=== PATIENT | female | born 1965 | race Caucasian/White ===

== ENCOUNTER 2016-08-06 21:48 | Observation (INO) | payer BC ==
[~2016-08-06] VITALS: Ht 152.4 cm; Wt 78.5 kg
[~2016-08-06 21:48] MED LIST: CIPR500T4 PO; GLYB5TAB3 PO; IBUP-1542 PO; INSU100I15 SC; LISI-313 PO; PRAV10TA43 PO
[2016-08-06] MEDS ORDERED: NITROGLYCERIN 2% 1 GM OINT PKT TD STA (23:28)
[2016-08-06] MEDS ORDERED: ASPIRIN 325 MG TAB PO STA (23:28)
[2016-08-07] VITALS (10 sets, daily range): BP systolic 91–111; BP diastolic 53–61; PULSE 63–72; RESP 18–20; Ht 152.4 cm; Wt 78.5 kg
[2016-08-07 00:05] LABS: CHLORIDE 102 mmol/L (97-110); POTASSIUM 4.2 mmol/L (3.5-5.1); SODIUM 142 mmol/L (135-144)
[2016-08-07 00:08] LABS: ANION GAP 16 (8-16); BLOOD UREA NITROGEN 20 mg/dl (7-20); CARBON DIOXIDE 28 mmol/L (21-31); CREATININE 0.66 mg/dl (0.44-1.00)
[2016-08-07 00:09] LABS: CALCIUM 9.4 mg/dl (8.4-10.2); GLUCOSE 361 mg/dl (70-220)
[2016-08-07 00:12] LABS: INR 0.96; PARTIAL THROMBOPLASTIN TIME 31.1 Sec (25.0-35.0); PROTIME 12.8 Sec (12.2-14.2)
[2016-08-07 00:13] LABS: BASOPHILS % 0.4 % (0.0-2.0); EOSINOPHILS % 0.4 % (0.0-7.0); HEMATOCRIT 34.1 % (37.0-47.0); HEMOGLOBIN 11.4 g/dl (12.0-16.0); LYMPHOCYTES # 1.8 10^3/ul (0.8-2.9); LYMPHOCYTES % 19.8 % (15.0-51.0); MEAN CORPUSCULAR HGB CONC 33.4 g/dl (32.0-37.0); MEAN PLATELET VOLUME 10.1 fl (7.4-10.4); MONOCYTE # 0.5 10^3/ul (0.3-0.9); MONOCYTES % 5.4 % (0.0-11.0); NEUTROPHIL # 6.9 10^3/ul (1.6-7.5); PLATELET COUNT 373 10^3/UL (140-440); RED BLOOD COUNT 4.74 10^6/ul (4.20-5.40); RED CELL DISTRIBUTION WIDTH 17.4 % (11.5-14.5); UNCORRECTED WBC 9.3 10^3/ul (4.8-10.8); WHITE BLOOD COUNT 9.3 10^3/ul (4.8-10.8)
[2016-08-07 00:14] LABS: CONDITION 1; LH ANALYZER COMMENTS 1
[2016-08-07 00:15] LABS: D-DIMER 3794.21 ng/ml (<460)
[2016-08-07] MEDS ORDERED: IOHEXOL 300MG/ML 150 ML BTL ONE (00:22)
[2016-08-07] MEDS ORDERED: SOD CHLORIDE 0.9% 100 ML ONE (00:22)
[2016-08-07 00:31] LABS: TROPONIN-I < 0.012 ng/ml (0.00-0.12)
--- NOTE | 2016-08-07 01:46 | RADRPT ---
PROCEDURE: CT Chest with contrast. CLINICAL INDICATION: Chest pain. TECHNIQUE: CT scan of the chest was performed on a multidetector scanner. The patient was scanned following the uncomplicated intravenous administration of 100 cc of Omnipaque-300 contrast. 3D, co kwabena and sagittal reformatted images were obtained from the axial source images. Images were review ed on a high-resolution PACS workstation. The total exam CTDlvol = 53 mGy and DLP = 606 mGy-cm. COMPARISON: CT abdomen 10/28/2015 FINDINGS: No filling defects are identified within the pulmonary arteries to suggest pulmonary artery thrombos is. Thoracic aorta is normal caliber without aneurysm or dissection. There are minimal atheroscler otic vascular calcifications. There is no mediastinal or hilar lymphadenopathy or mass. Heart is m ildly enlarged. No pericardial fluid or thickening. There is hypoventilation with mild mild dependent atelectasis. No focal infiltrate. There is no pl eural effusion. There is no pneumothorax. There are no fractures. Chest wall is unremarkable. Imaging obtained through the upper abdomen demonstrates an enlarged 17.8 cm liver.. IMPRESSION: 1. No evidence for pulmonary embolus. 2. No aortic aneurysm or dissection. 3. Minimal atherosclerotic vascular of occasions. 4. Hypoventilation with minimal bibasilar atelectasis. 5. Hepatomegaly. RPTAT: HMVK .Venancio Martin MD, MD Date Time Electronically viewed and signed by .Venancio Martin MD, on 08/07/2016 01:45 .K/
[2016-08-07] MEDS ORDERED: SOD CHLORIDE 0.9% 1,000 ML IV SCH (02:16)
--- NOTE | 2016-08-07 02:21 | ERA ---
ER Documentation Chief Complaint Date/Time DATE: 08/07/16 TIME: 02:18 Chief Complaint weak since earlier today with pressure on body HPI This is a 51-year-old patient with hypertension and diabetes who complained prior to arrival having substernal chest pressure with shortness of breath and radiation down the left arm. She experienced pain for a few minutes and subsequently was syncopal for an unknown duration of time. When she woke up she still had the chest pressure but it gradually went away. Currently she is pain-free. Patient denies any prior history of cardiac disease or chest pain workups in the hospital. She had some palpitations but no diaphoresis and did have an overall sense of general weakness. ROS All systems reviewed and are negative except as per history of present illness. Medications Home Meds Active Scripts Ibuprofen* (Ibuprofen*) 600 Mg Tablet, 600 MG PO Q6H Y for PAIN, #20 TAB Prov:VENANCIO PEDROZA MD 10/29/15 Ciprofloxacin Hcl* (Ciprofloxacin Hcl*) 500 Mg Tablet, 500 MG PO BID for 10 Days , TAB Prov:VENANCIO PEDROZA MD 10/29/15 Reported Medications Insulin Glargine,Hum.rec.anlog (Lantus Solostar) 100 Units/Ml Pen, 25 UNIT SC QHS, SYR 10/29/15 Glyburide* (Glyburide*) 5 Mg Tablet, 5 MG PO BID, TAB 10/29/15 Lisinopril* (Lisinopril*) 5 Mg Tablet, 5 MG PO DAILY, TAB 10/29/15 Pravastatin Sodium* (Pravastatin Sodium*) 10 Mg Tablet, 10 MG PO HS, TAB 10/29/15 Allergies Allergies: Coded Allergies: No Known Allergy (Unverified , 10/29/15) PMhx/Soc History of Surgery: Yes ( x 3) Anesthesia Reaction: No Hx Neurological Disorder: No Hx Respiratory Disorders: No Hx Cardiac Disorders: Yes (HTN, hyperlipidemia ) Hx Psychiatric Problems: No Hx Miscellaneous Medical Probl: Yes (diabetes type 1 ) Hx Alcohol Use: No Hx Substance Use: No Hx Tobacco Use: No Smoking Status: Never smoker FmHx Family History: No coronary disease Physical Exam Vitals Vital Signs Date Time Temp Pulse Resp B/P Pulse Ox O2 Delivery O2 Flow Rate FiO2 08/07/16 01:00 75 17 112/54 100 Nasal Cannula 2.0 08/06/16 23:57 Nasal Cannula 2 08/06/16 21:55 97.8 81 18 171/77 99 Physical Exam Const: Well-developed, well-nourished Head: Atraumatic, normocephalic Eyes: Normal Conjunctiva, PERRLA, EOMI, normal sclera, no nystagmus ENT: Normal External Ears, Nose and Mouth, moist mucus membranes. Neck: Full range of motion. No meningismus, no lymphadenopathy. Resp: Clear to auscultation bilaterally, no wheezing, rhonchi, rales Cardio: Regular rate and rhythm, no murmurs, S1 S2 present Abd: Soft, non tender x 4, non distended. Normal bowel sounds, no guarding or rebound, no pulsitile abdominal masses or bruits Skin: No petechiae or rashes, no ecchymosis , no maculopapular rash Back: No midline or flank tenderness Ext: No cyanosis, or edema, FROM x 4, normal inspection, neurovascularly intact x 4 Neur: Awake and alert, STR 5/5 x 4, sensation intact x 4, no focal findings, cerebellum intact Psych: Normal Mood and Affect Result Diagram: 08/06/16 2330 08/06/16 2330 Results 24 hrs Laboratory Tests Test 08/06/16 23:30 Activated Partial Thromboplast Time 31.1Sec Anion Gap 16 Basophils # 0.010^3/ul Basophils % 0.4% Blood Morphology Comment Blood Urea Nitrogen 20mg/dl Calcium Level 9.4mg/dl Carbon Dioxide Level 28mmol/L Chloride Level 102mmol/L Creatinine 0.66mg/dl D-Dimer 3794.21ng/ml D-Dimer Comment Eosinophils # 0.010^3/ul Eosinophils % 0.4% Glucose Level 361mg/dl Hematocrit 34.1% Hemoglobin 11.4g/dl INR International Normalized Ratio 0.96 Lymphocytes # 1.810^3/ul Lymphocytes % 19.8% Mean Corpuscular Hemoglobin 24.0pg Mean Corpuscular Hemoglobin Concent 33.4g/dl Mean Corpuscular Volume 72.0fl Mean Platelet Volume 10.1fl Monocytes # 0.510^3/ul Monocytes % 5.4% Neutrophils # 6.910^3/ul Neutrophils % 74.0% Nucleated Red Blood Cells # 0.010^3/ul Nucleated Red Blood Cells % 0.0/100WBC Platelet Count 19816^3/UL Potassium Level 4.2mmol/L Prothrombin Time 12.8Sec Prothrombin Time Ratio 1.0 Red Blood Count 4.7410^6/ul Red Cell Distribution Width 17.4% Sodium Level 142mmol/L Troponin I < 0.012ng/ml White Blood Count 9.310^3/ul Current Medications Medications (Trade) Dose Ordered Sig/Will Route PRN Reason Start Time Stop Time Status Last Admin Dose Admin Aspirin (Aspirin) 325 mg ONCE STAT PO 08/06/16 23:28 08/06/16 23:30 DC 08/06/16 23:39 Nitroglycerin 1 inch 1 inch ONCE STAT TD 08/06/16 23:28 08/06/16 23:30 DC 08/06/16 23:39 Sodium Chloride (NS) 100 ml @ ud STK-MED ONCE .ROUTE 08/07/16 00:22 08/07/16 00:23 DC 08/07/16 00:49 Iohexol (Omnipaque 300mg/ ml) 150 ml STK-MED ONCE .ROUTE 08/07/16 00:22 08/07/16 00:23 DC 08/07/16 00:49 Procedures/MDM EKG: Rate/Rhythm: Normal Sinus Rhythm,NL intervals QRS, ST, QT: NORMAL TX, QRS, QT] Impression: NORMAL EKG PROCEDURE: CT Chest with contrast. CLINICAL INDICATION: Chest pain. TECHNIQUE: CT scan of the chest was performed on a multidetector scanner. The patient was scanned following the uncomplicated intravenous administration of 100 cc of Omnipaque-300 contrast. 3D, coronal and sagittal reformatted images were obtained from the axial source images. Images were reviewed on a high-resolution PACS workstation. The total exam CTDlvol = 53 mGy and DLP = 606 mGy-cm. COMPARISON: CT abdomen 10/28/2015 FINDINGS: No filling defects are identified within the pulmonary arteries to suggest pulmonary artery thrombosis. Thoracic aorta is normal caliber without aneurysm or dissection. There are minimal atherosclerotic vascular calcifications. There is no mediastinal or hilar lymphadenopathy or mass. Heart is mildly enlarged. No pericardial fluid or thickening. There is hypoventilation with mild mild dependent atelectasis. No focal infiltrate. There is no pleural effusion. There is no pneumothorax. There are no fractures. Chest wall is unremarkable. Imaging obtained through the upper abdomen demonstrates an enlarged 17.8 cm liver.. IMPRESSION: 1. No evidence for pulmonary embolus. 2. No aortic aneurysm or dissection. 3. Minimal atherosclerotic vascular of occasions. 4. Hypoventilation with minimal bibasilar atelectasis. 5. Hepatomegaly. RPTAT: HMVK .Venancio Martin MD, MD Date Time Electronically viewed and signed by .Venancio Martin MD, on 08/07/2016 01:45 .K/ CC: DICK CONNOLLY DO No evidence of PE. I will admit the patient to the hospital for cardiac workup. Patient had elevated d-dimer but again no evidence of PE at this time. Patient's symptoms are concerning for cardiac cause will require inpatient workup and continuous monitoring. Further w/u for ischemia, arrhythmia, PE or dissection will be deferred to the inpatient team. Accepting Care Team: Current data and ongoing care discussed. Time: Time of admission Primary Provider: ifeoma Consulting: [INES] Outstanding Data: none Departure Diagnosis: Primary Impression: Chest pain Qualified Code: R07.9 - Chest pain, unspecified type Condition: Stable DICK CONNOLLY DO Aug 07, 2016 02:21
[2016-08-07] MEDS ORDERED: LORAZEPAM 2 MG INJ IV PRN (02:30)
[2016-08-07] MEDS ORDERED: ACETAMINOPHEN 325 MG TAB PO PRN ×2 (02:30)
[2016-08-07] MEDS ORDERED: ONDANSETRON 4 MG INJ IV PRN ×2 (02:30)
[2016-08-07] MEDS ORDERED: NITROGLYCERIN (SL) 0.4 MG TAB SL PRN (02:30)
[2016-08-07] MEDS ORDERED: DOCUSATE SODIUM 100 MG CAP PO PRN (02:30)
[2016-08-07] MEDS ORDERED: NACL 0.9% 3 ML SYG IV SCH (02:30)
[2016-08-07] MEDS ORDERED: hydrALAzine 20 MG INJ IV PRN (02:30)
--- NOTE | 2016-08-07 02:38 | HP ---
Date/Time of Note Date/Time of Note DATE: 08/07/16 TIME: 02:30 Assessment/Plan VTE Prophylaxis VTE Prophylaxis Intervention: heparin Lines/Catheters IV Catheter Type (from Rust): Peripheral IV Assessment/Plan Assessment/Plan 51 yo female with a past medical history of essential hypertension, type II DM, who complains of acute chest pain. 1. Chest pain - ACS vs atypical - will admit the patient to telemetry, consult cardiology for possible stress test, cycle cardiac markers, check TSH/Mag level , morphine, NTG, oxygen, aspirin, 2D ECHO, npo for stress test in am, statin - lipid panel 2. Syncope - cardiac vs vasovagal - will also obtain a carotid duplex, fall precautions, orthostatic vitals 3. Type II DM - uncontrolled - will check hgba1c, ISS, lantus 4. Essential hypertension - continue with lisinopril, once tested, possible addition of coreg, hydralazine prn for SBP > 160 5. Anemia - microcytic - check iron profile, occult blood stool 6. GI ppx - pepcid po 7. DVT ppx - heparin answered all of her questions. as per clinical course. this history and physical took greater then 45 minutes to complete HPI/ROS Admit Date/Time Admit Date/Time 08/07/2016, 2:30 am Hx of Present Illness 51 yo female with a past medical history of essential hypertension, type II DM, who complains of acute chest pain. She states that the chest pain is substernal , radiating to her neck, back and left arm, associated with syncopal episode. This has never happened before. She has never had a stress test or an echocardiogram. Her pain is 7/10 in intensity, with no alleviating factors. Also associated is dizziness and headaches. She denies any nausea/vomiting/ diarrhea, shortness of breath, lightheadedness, fevers/chills, urinary/bowel irregularities or other constitutional symptoms. ED course: zofran, nitropaste ROS 14 point review of systems completed, please refer to HPI for any positive findings PMH/Family/Social Past Medical History Medical History: diabetes, hypertension Past Surgical History x 3 Family History Significant Family History: no pertinent family hx, heart disease (none), diabetes (none), hypertension (none) Social History Alcohol Use: none Smoking Status: Never smoker Drug Use: none Exam/Review of Systems Vital Signs Vitals Vital Signs Date Time Temp Pulse Resp B/P Pulse Ox O2 Delivery O2 Flow Rate FiO2 08/07/16 01:00 75 17 112/54 100 Nasal Cannula 2.0 08/06/16 21:55 97.8 Exam Exam Gen Omi: mild distress 2/2 to chest discomfort, AAOx4 HEENT: NC/AT, PERRLA, EOMI, no pharyngeal erythema, no tonsillar exudates, no lymphadenopathy, no JVD, no carotid bruits NECK: supple, no thyromegaly THORAX: symmetrical, no obvious deformities CV: S1S2, RRR, no M/G/R Lungs: CTAB no W/C/R/R Abd: soft, NT/ND, +BS, no rebound, no guarding, neg HSM EXT: trace lower extremity bilateral edema, no ecchymosis, no clubbing, FROM Neuro: CN II-XII grossly intact, no focal deficits Psych: good mentation, alert and oriented, good mood and affect Skin: C/D/I Labs Result Diagram: 08/06/16 2330 08/06/16 2330 Medications Medications Current Medications Sodium Chloride (NS) 1,000 ml @ 80 mls/hr [id number] IV ; Start 08/07/16 at 02:16 ; Stop 08/07/16 at 14:45 Procedures Procedures CTA chest IMPRESSION: 1. No evidence for pulmonary embolus. 2. No aortic aneurysm or dissection. 3. Minimal atherosclerotic vascular of occasions. 4. Hypoventilation with minimal bibasilar atelectasis. 5. Hepatomegaly. DOMINIQUE COLLINS MD Aug 07, 2016 02:38
[2016-08-07 03:43] LABS: CREATINE KINASE 42 IU/L (23-200); IRON 24 ug/dl (35-150)
[2016-08-07 03:44] LABS: CHOL/HDL RATIO 3.1 RATIO; MAGNESIUM 1.8 mg/dl (1.7-2.5)
[2016-08-07 03:53] LABS: CK-MB 0.32 ng/ml (0.0-2.4); TOTAL IRON BINDING CAPACITY 387 ug/dl (241-421)
[2016-08-07 03:56] LABS: TROPONIN-I < 0.012 ng/ml (0.00-0.12)
[2016-08-07 04:14] LABS: THYROID STIMULATING HORMONE 1.5 MIU/L (0.465-4.680)
[2016-08-07] MEDS: SOD CHLORIDE 0.9% 1,000 ML IV SCH ×2 (06:35→14:49)
[2016-08-07] MEDS: FAMOTIDINE 20 MG TAB PO SCH ×2 (08:20→20:44)
[2016-08-07] MEDS: LISINOPRIL 5 MG TAB PO SCH (08:20)
[2016-08-07] MEDS: ASPIRIN 81 MG TAB PO SCH (08:20)
[2016-08-07] MEDS: INSULIN ASPART [NOVOLOG] 3 ML PEN SC SCH ×5 (08:26→21:02)
[2016-08-07] MEDS: HEPARIN 5,000 UNIT/0.5 ML SYG SC SCH ×2 (08:27→20:56)
[2016-08-07] MEDS ORDERED: GLUCOSE GEL 15 GRAM TUBE PO PRN ×2 (09:00)
[2016-08-07] MEDS ORDERED: GLUCAGON 1 MG INJ IM PRN (09:00)
[2016-08-07] MEDS ORDERED: GLUCOSE GEL 15 GRAM TUBE BUCCAL PRN (09:00)
[2016-08-07] MEDS ORDERED: DEXTROSE 50% 50 ML SYRINGE IV PRN ×2 (09:00)
--- NOTE | 2016-08-07 10:30 | RADRPT ---
PROCEDURE: US Carotids. CLINICAL INDICATION: bruit , syncope. TECHNIQUE: Multiple sonographic of the carotid bifurcation region and vertebral arteries were obta ined utilizing flood scale, duplex and color-flow imaging. The images were reviewed on a PACS worksta tion. COMPARISON: No prior studies are available for comparison. FINDINGS: Evaluation of the right carotid bifurcation region reveals no significant calcific atherosclerotic d isease. Evaluation of the left carotid bifurcation region reveals no significant calcific atherosclerotic di sease. There is antegrade flow within the vertebral arteries bilaterally. RIGHT CAROTID MEASUREMENTS: Common Carotid Llfzrq33.2 (cm/sec) Internal Carotid Artery - shgrumpt96.6 (cm/sec) Internal Carotid Artery - mid84.9 (cm/sec) Internal Carotid Artery - .4 (cm/sec) Internal Carotid/Common Carotid1.45 LEFT CAROTID MEASUREMENTS: Common Carotid Hrlyws12.7 (cm/sec) Internal Carotid Artery - txgvobnk32.3 (cm/sec) Internal Carotid Artery - mid57.3 (cm/sec) Internal Carotid Artery - gawwko38.9 (cm/sec) Internal Carotid/Common Carotid0.86 RPTAT: AA IMPRESSION: No evidence for hemodynamically significant stenosis in the bilateral internal carotid arteries - va lidated velocity measurements with angiographic measurements, velocity criteria are extrapolated fro m diameter data as defined by the Society of Radiologists in Ultrasound Consensus Conference Radiolo gy 2003; 229;340-346. This study does indirectly reference the measurement of the distal ICA diamet er as the denominator for stenosis measurement. Normal antegrade flow in the vertebral arteries bilaterally. .Lonnie Wick MD, Date Time Electronically viewed and signed by .Lonnie Wick MD, MD on 08/07/2016 10:30 .S/
[2016-08-07 11:26] LABS: CREATINE KINASE 29 IU/L (23-200)
[2016-08-07 11:36] LABS: CK-MB 0.24 ng/ml (0.0-2.4)
[2016-08-07 11:43] LABS: TROPONIN-I < 0.012 ng/ml (0.00-0.12)
--- NOTE | 2016-08-07 15:58 | CONS ---
DATE OF ADMISSION: 08/07/2016 DATE OF CONSULTATION: 08/07/2016 TYPE OF CONSULTATION: Cardiology REFERRING PHYSICIAN: Dr. Collins REASON FOR CONSULTATION: Chest pain. CHIEF COMPLAINT: Chest pain. HISTORY OF PRESENT ILLNESS: Thank you for this referral. Discussion with her daughter, and Dr. Inocencia schneider. This is a pleasant 51-year-old female with history of diabetes who presented with complaint o f chest pain. The patient said she had sudden onset of chest pain, was severe, 7/10 in intensity, l eft-sided pain lasted a few seconds only. Had left arm pain as well. came to emergency room. Card iac enzymes have been negative so far. Currently, the patient is chest pain-free. PAST MEDICAL HISTORY: Diabetes, hypertension. ALLERGIES: NO REPORTED DRUG ALLERGIES. SOCIAL HISTORY: Does not smoke or drink. FAMILY HISTORY: No reported coronary artery disease. MEDICATIONS: Per medication reconciliation, personally reviewed. REVIEW OF SYSTEMS: All except for above-mentioned. PHYSICAL EXAMINATION: VITAL SIGNS: Temperature 98.5, heart rate of 68, blood pressure 100/56, respiration rate of 20, sat urating 99%. HEENT: Normocephalic, atraumatic. Pupils equal and round. CARDIOVASCULAR: Regular rate and rhythm. PULMONARY: With no wheezes. GASTROINTESTINAL: Soft, nontender. EXTREMITIES: With no significant lower extremity edema. NEUROLOGIC: Awake, responds appropriately. PSYCHIATRIC: Appears to be calm and pleasant. DIAGNOSTIC DATA: EKG was personally reviewed, showed normal sinus rhythm, no evidence of ischemia. Poor R-wave progression, cannot rule out anterior infarct. LABORATORY: Sodium 142, potassium is 4.2, BUN of 20, creatinine 0.66, glucose of 361. Hemoglobin A 1c of 10.9. Troponin less than 0.12. LDL of 93, HDL 51. CT pulmonary angiogram done shows no evid ence of pulmonary embolus or aortic aneurysm or dissection. Minimal atherosclerosis. ASSESSMENT AND PLAN: 1. Chest pain. Rule acute coronary syndrome. 2. Diabetes. 3. Hypertension. 4. Anemia. RECOMMENDATIONS: Will monitor on telemetry. Cardiac enzymes have been negative. Continue with the aspirin. Lexiscan test will be ordered to be done once the nuclear medicine is available. As of , they have told me that the team is not available. Will schedule for tomorrow, therefore. Dictated By: GURJIT COLON/NTS Conf#: [id number] DID#: [id number] CC: DOMINIQUE COLLINS MD;*EndCC*
--- NOTE | 2016-08-07 16:01 | RADRPT ---
Echocardiogram Report Patient Name: SALMA MEJIA Gender: Female Date: 1965 Study Date: 07-Aug-2016 Airplane Pilot Helper: Lin Gillespie OSBALDO Location: 520 Ref. Physician: DOMINIQUE COLLINS Quality: Adequate Procedures: Transthoracic echocardiogram with complete 2D, M-Mode, and doppler examination. Indications: Chest Pain. 2D/M Mode Doppler Measurement Value Normal Ranges Measurement Value Normal Ranges LVIDd 2D 4.7 3.5 - 5.6 cm AV Peak Niko 1.4 m/sec LVIDs 2D 2.6 2.1 - 4.1 cm AV Peak PG 8.2 mmHg LVPWd 2D 0.9 0.6 - 1.1 cm LVOT Peak Niko 1.1 m/sec IVSd 2D 0.8 0.6 - 1.1 cm LVOT Peak PG 4.5 mmHg AoR Diam 2D 2.3 2.0 - 3.7 cm MV E Peak Niko 0.8 m/sec EDV 2D 104.1 cm3 MV A Peak Niko 0.9 m/sec ESV 2D 17.6 cm3 MV E/A 0.9 LA Dimen 2D 3.7 2.3 - 4.0 cm MV Decel Time 191 msec MV Decel Callahan 4 MV E/A 0.9 TR Peak Niko 1.9 m/sec TR Peak PG 14.7 mmHg RVSP 18.0 mmHg Findings Left Ventricle: Normal left ventricular systolic function. Normal left ventricular cavity size. Normal left ventricular wall thickness. Ejection fraction is visually estimated at 65 %. Tissue Doppler/Mitral Doppler indices are consistent with impaired relaxation (Stage I diastolic dysfunction). Right Ventricle: Normal right ventricular size. Normal right ventricular systolic function. Left Atrium: The left atrium is normal in size. Right Atrium: The right atrium is normal in size. Mitral Valve: Normal appearance and function of the mitral valve with trace physiologic regurgitation. Aortic Valve: Normal appearance of the aortic valve. No significant aortic stenosis or insufficiency. Tricuspid Valve: Normal appearance and function of the tricuspid valve with trace physiologic regurgitation. Estimated peak PA systolic pressure 18 mmHg. Pericardium: Normal pericardium with no significant pericardial effusion. Aorta: Normal aortic root. IVC: Normal size and normal respiratory collapse consistent with normal right atrial pressure. Conclusions 1.Normal left ventricular systolic function. Normal left ventricular cavity size. Normal left ventricular wall thickness. Ejection fraction is visually estimated at 65 %. Tissue Doppler/Mitral Doppler indices are consistent with impaired relaxation (Stage I diastolic dysfunction). 2.Normal appearance and function of the mitral valve with trace physiologic regurgitation. 3.Normal appearance of the aortic valve. No significant aortic stenosis or insufficiency. 4.Normal appearance and function of the tricuspid valve with trace physiologic regurgitation. Estimated peak PA systolic pressure 18 mmHg. 5.Normal size and normal respiratory collapse consistent with normal right atrial pressure. Electronically Signed By: Jose Troncoso 07-Aug-2016 16:01: Patient Name: SALMA MEJIA Study Date: 07-Aug-2016 [id number]
[2016-08-07] MEDS ORDERED: NON-FORMULARY/PATIENT OWN MED (Pravastatin Sodium* 10 MG) PO SCH (21:00)
[2016-08-07] MEDS ORDERED: INSULIN GLARGINE [LANtus] 3 ML PEN SC SCH (21:00)
[2016-08-07] MEDS ORDERED: ATORVASTATIN 10 MG TAB PO SCH (21:00)
[2016-08-08] VITALS (12 sets, daily range): BP systolic 100–125; BP diastolic 56–63; PULSE 70–85; RESP 20
[2016-08-08] MEDS: INSULIN ASPART [NOVOLOG] 3 ML PEN SC SCH ×5 (01:00→17:00)
[2016-08-08] MEDS: morphine 2 MG INJ IV PRN ×2 (04:21→08:59)
[2016-08-08] MEDS: SOD CHLORIDE 0.9% 1,000 ML IV SCH ×2 (05:06→18:26)
[2016-08-08 06:45] LABS: BASOPHILS % 0.3 % (0.0-2.0); EOSINOPHILS # 0.1 10^3/ul (0.0-0.5); EOSINOPHILS % 0.8 % (0.0-7.0); HEMATOCRIT 32.6 % (37.0-47.0); HEMOGLOBIN 10.4 g/dl (12.0-16.0); LYMPHOCYTES # 1.9 10^3/ul (0.8-2.9); LYMPHOCYTES % 26.3 % (15.0-51.0); MEAN CORPUSCULAR HEMOGLOBIN 23.9 pg (29.0-33.0); MEAN CORPUSCULAR HGB CONC 31.8 g/dl (32.0-37.0); MEAN CORPUSCULAR VOLUME 75.1 fl (82.0-101.0); MEAN PLATELET VOLUME 9.4 fl (7.4-10.4); MONOCYTE # 0.5 10^3/ul (0.3-0.9); MONOCYTES % 6.9 % (0.0-11.0); NEUTROPHIL # 4.8 10^3/ul (1.6-7.5); NEUTROPHILS % 65.7 % (39.0-77.0); PLATELET COUNT 336 10^3/UL (140-440); RED BLOOD COUNT 4.35 10^6/ul (4.20-5.40); RED CELL DISTRIBUTION WIDTH 17.1 % (11.5-14.5); UNCORRECTED WBC 7.4 10^3/ul (4.8-10.8); WHITE BLOOD COUNT 7.4 10^3/ul (4.8-10.8)
[2016-08-08 06:56] LABS: POTASSIUM 3.7 mmol/L (3.5-5.1)
[2016-08-08 06:58] LABS: CREATININE 0.56 mg/dl (0.44-1.00)
[2016-08-08 06:59] LABS: CALCIUM 8.7 mg/dl (8.4-10.2)
[2016-08-08 07:06] LABS: CONDITION 1; LH ANALYZER COMMENTS 1
[2016-08-08] MEDS: ASPIRIN 81 MG TAB PO SCH (08:55)
[2016-08-08] MEDS: FAMOTIDINE 20 MG TAB PO SCH (08:55)
[2016-08-08] MEDS: LISINOPRIL 5 MG TAB PO SCH (08:59)
[2016-08-08] MEDS: HEPARIN 5,000 UNIT/0.5 ML SYG SC SCH (09:14)
[2016-08-08] MEDS ORDERED: REGADENOSON 0.4 MG/5 ML SYG ONE (14:08)
--- NOTE | 2016-08-08 16:41 | PN ---
DATE: 08/08/2016 CARDIOLOGY FOLLOWUP SUBJECTIVE: Discussed with the staff and family. No chest pain or pressure. No palpitation. MEDICATIONS: Reviewed. PHYSICAL EXAMINATION: VITAL SIGNS: Temperature 98, heart rate of 82, blood pressure 125/63, respiration rate of 16, satur ating 99%. HEENT: Normocephalic, atraumatic. No acute distress. Pupils equal and round. CARDIOVASCULAR: Regular rate and rhythm, systolic murmur grade I. PULMONARY: No wheezes. GASTROINTESTINAL: Soft, nontender. EXTREMITIES: No edema. NEUROLOGIC: Awake and alert. PSYCHIATRIC: Appears to be calm and pleasant. DIAGNOSTIC DATA: Echocardiogram was personally reviewed which showed normal LV size and ejection fr action of 65%. LABORATORY: Sodium 143, potassium 3.7, BUN of 11, creatinine 0.52, glucose 144. ASSESSMENT AND PLAN 1. Chest pain syndrome, rule acute coronary syndrome. 2. Diabetes. 3. Hypertension. 4. Mild anemia. RECOMMENDATIONS: Lexiscan test will be done today. Continue the rest of her cardiac care. Further recommendations after result of stress test is available. Dictated By: GURJIT LR MD AV/FLORENTIN Conf#: [id number] DID#: [id number] CC: DOMINIQUE COLLINS MD;*End*
--- NOTE | 2016-08-08 17:27 | RADRPT ---
PROCEDURE: Lexiscan myocardial perfusion study CLINICAL INDICATION: 51 -year-old patient complaining of chest pain. TECHNIQUE: Lexiscan 0.4 mg intravenously separate acquisition gated myocardial perfusion SPECT usi ng Tc 99m sestamibi 30.7 mCi intravenously at stress and Tc-99m Sestamibi, 10.6 mCi intravenously at rest was performed using the sequence. Poststress sestamibi SPECT images were obtained in the sup ine and prone positions. COMPARISON: No prior studies. FINDINGS: Perfusion images reveal no evidence of perfusion defects. Lexiscan post stress gated SPECT images demonstrate no wall motion abnormalities. IMPRESSION: 1. Normal study with no evidence of perfusion defects or wall motion abnormalities. 2. The left ventricle ejection fraction at stress is 59%. A call report was made to Dr. Troncoso at 05:26 p.m. on August 08, 2016. RPTAT: HH .Zoe Vann MD, MD Date Time Electronically viewed and signed by .Zoe Vann MD, on 08/08/2016 17:27 .L/
--- NOTE | 2016-08-08 18:40 | PDOCDIS ---
Discharge Instructions CONDITION Patient Condition: Good HOME CARE INSTRUCTIONS: Special Diet: DIABETIC ACTIVITY: Activity Restrictions: No Restrictions FOLLOW UP/APPOINTMENTS Appointments F/U WITH YOUR PCP IN 1-2 WEEKS JEREMIE MATHEWS Aug 08, 2016 18:40
--- NOTE | 2016-08-08 20:17 | TMLRPT ---
DATE: 08/08/2016 LEXISCAN STRESS TEST INDICATION: Chest pain. DESCRIPTION: Lexiscan was performed as per protocol. FINDINGS: 1. Baseline EKG showed normal sinus rhythm, normal ECG. Heart rate is 79, blood pressure 125/69. Heart rate peak stress at 104, blood pressure 140/68. 2. No significant ischemic ST changes or arrhythmia is seen. CONCLUSION: Completion of Lexiscan stress test as per protocol. See nuclear medicine result for fi nal report. Dictated By: GURJIT LR MD AV/NTS Conf#: [id number] DID#: [id number] CC: DOMINIQUE COLLINS MD;*EndCC*
--- NOTE | 2016-08-09 00:25 | DS ---
DATE OF ADMISSION: 08/07/2016 DATE OF DISCHARGE: 08/08/2016 DISCHARGE DIAGNOSES: 1. Chest pain, now resolved. Nuclear stress test was negative. 2. Syncope, likely vasovagal from chest pain, which was likely musculoskeletal in origin. Workup w as negative. 3. Type 2 diabetes. Continue home regimen. The patient needs to improve diet and has been advised to lose weight. 4. Hypertension. Continue home lisinopril. 5. Anemia of chronic disease. HOSPITAL COURSE: The patient is a 51-year-old female with history of type 2 diabetes, hypertension. The patient presents with chest pain and syncopal episode. The patient was seen by cardiologybarb a nuclear stress test that showed a normal study, no evidence of perfusion defects. Left ventricu lar ____ stress was 59%. The patient did have a CTA of the chest that showed no evidence of pulmona ry embolism, no aneurysm or dissection. The patient had a carotid Doppler study that showed no evid ence for significant stenosis in the bilateral internal carotid arteries. The patient had a 2D echo that showed a normal EF with stage I diastolic dysfunction. The patient had no further chest pain. It was felt that her chest pain was musculoskeletal in origin. Of note, her troponins were negati ve. A1c was checked and it was 10.9. She was told she needs to improve her diet. She did have marlin rocytic anemia as well. TIBC was within normal limits, suggesting chronic disease. The patient was felt stable for discharge. On the day of discharge, patient's vitals, labs, physical exam were sta ble. She had no acute complaints. Questions were answered. CONDITION ON DISCHARGE: Stable. DISPOSITION: To home. MEDICATIONS: The patient is to continue usual home medications. Recommendation was to stop Cipro, as there was no evidence of any acute infection. FOLLOWUP: She is to follow up with her PCP in 1 to 2 weeks. Greater than 30 minutes was spent coordinating discharge of this patient. Dictated By: JEREMIE MATHEWS MD BS/NTS Conf#: [id number] DID#: [id number] CC: DOMINIQUE COLLINS MD;*EndCC*
== END 2016-08-08 21:20 | disposition home or self-care (01) ==
LOC: E/R 21:48 → TEL 08-07 02:16
PROVIDERS: ADMIT Student in an Organized Health Care Education/Training Program; ATTEND Student in an Organized Health Care Education/Training Program
DX: R07.9 Chest pain, unspecified (principal); R55 Syncope and collapse; E11.9 Type 2 diabetes mellitus without complications; I10 Essential (primary) hypertension; D63.8 Anemia in other chronic diseases classified elsewhere
CPT/HCPCS: 36415; 71275; 78452; 80048; 80061; 82550; 82553; 82728; 82962; 83036; 83540; 83735; 84443; 84484; 85025; 85378; 85610; 85730; 93005; 93017; 93306; 93880; 96372; 96374; 99285; A9500; A9505; G0378; J1815; J2270; J2785; J7030; Q9967

== ENCOUNTER 2018-11-24 11:23 | Emergency (ER) | payer BC ==
[~2018-11-24] VITALS: Wt 67.0 kg
[~2018-11-24 11:23] MED LIST changes: -CIPR500T4 PO
[2018-11-24] MEDS ORDERED: SODIUM CHLORIDE 0.9% 1L BAG IV* STA (11:46)
[2018-11-24] MEDS ORDERED: ACETAMINOPHEN 500 MG TAB PO STA (12:12)
[2018-11-24] MEDS ORDERED: KETOROLAC 30 MG INJ IV STA (12:12)
--- NOTE | 2018-11-24 12:21 | ERD ---
ER Documentation Chief Complaint Chief Complaint AHUJA, NECK PAIN X 3 DAYS HPI 53-year-old female history of diabetes, rheumatoid arthritis on who presents to the emergency room complaining of fever and dental pain. The patient initially told her family that she was having a headache but the patient now is describing jaw pain. Patient states that she had a dental procedure done on . She was having some pain and was seen again by the dentist on Sunday who states that she appeared to be normal. Over the last several days the patient is having worsening pain to the right lower molar with associated fever. Occasionally to having difficulty swallowing secondary to some discomfort. Patient does have a headache but it is related to the jaw pain. She denies any rash or neck stiffness. No nausea or vomiting or diarrhea, mild dry nonproductive cough but no significant shortness of breath. No abdominal pain dysuria urgency or frequency. Pain currently 6 out of 10. ROS All systems reviewed and are negative except as per history of present illness. Medications Home Meds Active Scripts Ibuprofen* (Motrin*) 800 Mg Tab, 800 MG PO Q6H PRN for PAIN AND OR ELEVATED TEMP, #30 TAB Prov:REJI JENKINS MD 11/24/18 Ondansetron (Ondansetron Odt) 4 Mg Tab.rapdis, 4 MG PO Q6H PRN for NAUSEA AND/OR VOMITING, #10 TAB Prov:REJI JENKINS MD 11/24/18 Amoxicillin/Potassium Clav (Amox-Clav 875-125 mg Tablet) 875-125 mg Tab, 1 TAB PO BID for 10 Days, #20 TAB Prov:REJI JENKINS MD 11/24/18 Hydrocodone/Acetaminophen ([place] 5-325 Tablet) 1 Each Tablet, 1 TAB PO Q6H PRN for PAIN, #10 TAB Prov:REJI JENKINS MD 11/24/18 Ibuprofen* (Ibuprofen*) 600 Mg Tablet, 600 MG PO Q6H PRN for PAIN, #20 TAB Prov:FEDERICA PEDROZA MD 10/29/15 Reported Medications Insulin Glargine,Hum.rec.anlog (Lantus Solostar) 100 Units/Ml Pen, 25 UNIT SC QHS, SYR 10/29/15 Glyburide* (Glyburide*) 5 Mg Tablet, 5 MG PO BID, TAB 4/22/16 Lisinopril* (Lisinopril*) 5 Mg Tablet, 5 MG PO DAILY, TAB 10/29/15 Pravastatin Sodium* (Pravastatin Sodium*) 10 Mg Tablet, 10 MG PO HS, TAB 10/29/15 Allergies Allergies: Coded Allergies: No Known Allergy (Unverified , 10/29/15) PMhx/Soc History of Surgery: Yes (x3 C-sections) Anesthesia Reaction: No Hx Neurological Disorder: No Hx Respiratory Disorders: No Hx Cardiac Disorders: Yes (HTN, hyperlipidemia ) Hx Psychiatric Problems: No Hx Miscellaneous Medical Probl: Yes (diabetes type 1 ) Hx Alcohol Use: No Hx Substance Use: No Hx Tobacco Use: No FmHx Family History: diabetes Physical Exam Vitals Vital Signs Date Temp Pulse Resp B/P (MAP) Pulse Ox O2 O2 Flow FiO2 Time Delivery Rate 11/24/18 99.3 92 16 106/59 100 Room Air 13:00 (75) 11/24/18 101.1 112 18 140/80 99 11:30 (100) Physical Exam General: Well developed, well nourished, no acute distress Head: Normocephalic, atraumatic. Eyes: Pupils equally reactive, EOM intact ENT: Diffusely poor dentition with caries. The right posterior molar is tender to percussion with mild soft tissue swelling surrounding the base with apparent recent extraction. The submental space is soft and nontender patient is tolerating secretions without difficulty. Neck: Supple, mild right anterior and posterior cervical chain lymphadenopathy. No meningismus Respiratory: Lungs clear bilaterally, no distress Cardiovascular: Slight tachycardia, no murmurs, rubs, or gallops Abdominal: Soft, non-tender, non-distended, no peritoneal signs : Deferred MSK: No edema, no unilateral swelling, 5/5 strength Neurologic: Alert and oriented, moving all extremities, normal speech, no focal weakness, no cerebellar signs Skin: No rash Psych: Normal mood Result Diagram: 11/24/18 1208 11/24/18 1208 Results 24 hrs Laboratory Tests Test 11/24/18 12:03 11/24/18 12:08 POC Venous Lactate 1.3 mmol/L White Blood Count 12.3 10^3/ul Red Blood Count 5.38 10^6/ul Hemoglobin 12.6 g/dl Hematocrit 41.5 % Mean Corpuscular Volume 77.1 fl Mean Corpuscular Hemoglobin 23.4 pg Mean Corpuscular Hemoglobin Concent 30.4 g/dl Red Cell Distribution Width 16.7 % Platelet Count 295 10^3/UL Mean Platelet Volume 12.1 fl Immature Granulocytes % 0.500 % Neutrophils % 78.4 % Lymphocytes % 11.1 % Monocytes % 9.9 % Eosinophils % 0.0 % Basophils % 0.1 % Nucleated Red Blood Cells % 0.0 /100WBC Immature Granulocytes # 0.060 10^3/ul Neutrophils # 9.6 10^3/ul Lymphocytes # 1.4 10^3/ul Monocytes # 1.2 10^3/ul Eosinophils # 0.0 10^3/ul Basophils # 0.0 10^3/ul Nucleated Red Blood Cells # 0.0 10^3/ul Prothrombin Time 14.2 Sec Prothrombin Time Ratio 1.1 INR International Normalized Ratio 1.09 Activated Partial Thromboplast Time 33.2 Sec Sodium Level 141 mmol/L Potassium Level 4.0 mmol/L Chloride Level 103 mmol/L Carbon Dioxide Level 24 mmol/L Anion Gap 14 Blood Urea Nitrogen 22 mg/dl Creatinine 0.82 mg/dl Est Glomerular Filtrat Rate mL/min > 60 mL/min Glucose Level 156 mg/dl Calcium Level 9.3 mg/dl Total Bilirubin 0.8 mg/dl Direct Bilirubin 0.00 mg/dl Indirect Bilirubin 0.8 mg/dl Aspartate Amino Transf (AST/SGOT) 18 IU/L Alanine Aminotransferase (ALT/SGPT) 17 IU/L Alkaline Phosphatase 178 IU/L Troponin I < 0.012 ng/ml Total Protein 8.6 g/dl Albumin 4.2 g/dl Globulin 4.40 g/dl Albumin/Globulin Ratio 0.95 Current Medications Medications Dose Sig/Will Start Time Status Last (Trade) Ordered Route PRN Stop Time Admin Dose Reason Admin Sodium 2,010 ml BOLUS OVER 2 11/24/18 DC 11/24/18 Chloride HOURS STAT 11:46 12:09 (NS) IV* 11/24/18 11:47 Ampicillin 100 ml @ ONCE ONCE 11/24/18 DC 11/24/18 Sodium/ 100 mls/hr IVPB 12:30 12:16 Sulbactam 11/24/18 13:29 Sodium Clindamycin 50 ml @ 50 ONCE IVPB 11/24/18 DC 11/24/18 HCl/ mls/hr 12:30 12:56 Dextrose 11/24/18 13:29 1,000 mg ONCE STAT 11/24/18 DC 11/24/18 Acetaminophen PO 12:12 12:23 (Tylenol 11/24/18 12:13 Tab) Ketorolac 30 mg ONCE STAT 11/24/18 DC 11/24/18 Tromethamine IV 12:12 12:23 (Toradol) 11/24/18 12:13 IV Flush 10 ml STK-MED 11/24/18 DC 11/24/18 (NS 10 ml) ONCE .ROUTE 12:54 13:30 11/24/18 12:55 Sodium 100 ml @ ud STK-MED 11/24/18 DC 11/24/18 Chloride ONCE .ROUTE 12:54 13:30 11/24/18 12:55 Iohexol 150 ml STK-MED 11/24/18 DC 11/24/18 (Omnipaque ONCE .ROUTE 12:54 13:30 300mg/ ml) 11/24/18 12:55 Morphine 4 mg ONCE STAT 11/24/18 DC Sulfate IV 13:40 (morphine) 11/24/18 13:41 Ondansetron 4 mg ONCE STAT 11/24/18 DC HCl (Zofran IV 13:40 Inj) 11/24/18 13:41 Morphine 4 mg ONCE STAT 11/24/18 DC Sulfate IV 13:40 (morphine) 11/24/18 13:48 Procedures/MDM EKG, MONITORS, & DIAGNOSTIC IMAGING: EKG: I reviewed and interpreted a 12-lead EKG. Rhythm: Normal sinus rhythm ST Changes: No contiguous ST segment elevations T waves: No contiguous T wave inversions Impression: No evidence of acute cardiac ischemia Chest x-ray: I reviewed and interpreted a 1 view of the chest Mediastinum: No enlargement Cardiac silhouette: No cardiomegaly Airspace: Clear lung bach bilaterally without evidence of pneumothorax Bones: No evidence of fracture CT neck soft tissue: IMPRESSION: 1. Dental disease with prominent decay of the right second mandibular molar. Adjacent small periapical abscess or periapical cyst formation. 2. No definite soft tissue abscess identified. 3. Small right thyroid nodule, 4 mm. 4. Nonspecific sclerotic area in the C5 vertebral body. Bone scan or MRI could be considered if clinically warranted. RPTAT: HBST LAB INTERPRETATION: I reviewed the laboratory testing and it shows white count of 12, normal lactic acid MEDICAL DECISION MAKING: The patient has fever and dental pain with possible source of infection. The patient is immunocompromised taking Humira. A code sepsis was initiated. The patient likely has dental source. Unasyn and clindamycin provided after blood cultures. Patient given IV fluids and antipyretics. CT of the neck and soft tissue would be appropriate to rule out deep space infection though very low clinical concern for that process. Patient exhibits no signs or symptoms concerning for meningitis. The patient has a mild cough but no evidence of pneumonia. Abdomen is soft and nontender. ER COURSE: * The patient's vital signs and symptoms are dramatically improved. CT imaging shows no evidence of deep space infection that would warrant surgical drainage emergently. Apical abscess is noted. This is the likely source of the patient's fever. Patient can be safely discharged on Augmentin with close dental follow-up. Return precautions were discussed and understood. The patient feels comfortable with the plan. CONSULTATION: None DISPOSITION PLAN: The patient does not have an identifiable emergent medical condition that warrants inpatient hospitalization at this time. The patient is deemed safe for discharge with outpatient follow-up. We discussed follow up with the patient's primary care doctor within 24 to 48 hours as needed. We also discussed return to the emergency room for worsening symptoms or worsening condition. Outpatient referral: Dentist Discharge Medications: Augmentin, [place], Zofran, Motrin NARCOTIC MEDICATION: The patient has been prescribed a narcotic medication during this encounter. The patient has been warned about the use of narcotics. The patient should not drive or operate heavy machinery while taking this medication. The patient was also warned about the addictive properties of narcotic medications. Narcan prescription was NOT provided given the following criteria: 1. No more than 5 tablets of [place] 10 mg or 10 tablets of [place] 5 mg were prescribed. 2. Concomitant opiate and benzodiazepine prescriptions were not provided. 3. There is no obvious evidence of prior history of opiate abuse or overdose. Departure Diagnosis: Primary Impression: Periapical abscess Condition: REJI Palacios MD November 24, 2018 12:21
[2018-11-24] MEDS ORDERED: AMPICILLIN/SULB 3 GM/NS (PMX) 100 ML IVPB ONE (12:30)
[2018-11-24] MEDS ORDERED: CLINDAMYCIN 600 MG/D5W (PMX) 50 ML IVPB SCH (12:30)
[2018-11-24] MEDS ORDERED: IOHEXOL 300MG/ML 150 ML BTL ONE (12:54)
[2018-11-24] MEDS ORDERED: SOD CHLORIDE 0.9% 100 ML ONE (12:54)
[2018-11-24] MEDS ORDERED: ONDANSETRON 4 MG INJ IV STA (13:40)
[2018-11-24] MEDS ORDERED: morphine 4 MG/ML VIAL IV STA ×2 (13:40)
[2018-11-24] MEDS ORDERED: ONDA4TAB14 PO (14:38)
[2018-11-24] MEDS ORDERED: HYDR-4011 PO (14:38)
[2018-11-24] MEDS ORDERED: IBUP800T48 PO (14:38)
[2018-11-24] MEDS ORDERED: AMOX1TAB10 PO (14:38)
[2018-11-24] MEDS ORDERED: NYST1000 PO (14:45)
[2018-11-24 14:57] VITALS: BP 103/60; PULSE 78; RESP 15
== END 2018-11-24 14:58 | disposition home or self-care (01) ==
LOC: E/R 11:23
DX: K04.7 Periapical abscess without sinus (principal); I10 Essential (primary) hypertension; E10.9 Type 1 diabetes mellitus without complications; Z79.4 Long term (current) use of insulin
CPT/HCPCS: 36415; 70491; 71045; 80053; 83605; 84484; 85025; 85610; 85730; 87040; 93005; 96374; 96375; 99285; J0295; J1885; J2270; J2405; J7030; Q9967